=== PATIENT | female | born 1960 | race Caucasian/White ===

== ENCOUNTER 2024-10-25 11:20 | Emergency (ER) | payer OTHER, SELFPAY ==
[2024-10-25 11:25] VITALS: BP 168/110
--- NOTE | 2024-10-25 13:18 | ED.GENMED ---
History of Present Illness
General
Chief Complaint: DVT/Possible Blood Clot
Time Seen by Provider: 10/25/24 12:25
History of Present Illness
History of Present Illness:
63-year-old female without significant past medical history presenting for 'pressure 'in her left upper extremity. Notes symptoms have been ongoing for several days. She talked her primary care doctor who ordered an ultrasound. However, and
trying to schedule the ultrasound was not able to get until December. Denies numbness or tingling to the extremity. Denies any recent injury. Denies associated chest pain, however does report report some pressure in her neck, however that has been
ongoing for months. Denies any history of blood clots. Denies chest pain or difficulty breathing. Symptoms are most prominent at the medial bicipital region. Denies additional acute medical complaints
Past History
Past History
ED Past Medical History: Other (Depression ) and Other (Lymphedema)
ED Past Surgical History:
Social History
Tobacco: Non-smoker
Alcohol: None
Drug: None
Personal:
Living: with family
Employment: Not employed
Phy Exam
Physical Exam
Physical Exam:
General: Well-appearing, no clinical signs of dehydration, nontoxic and in no acute distress
HEENT: protecting airway
Neck: appears supple
CV: Normal heart rate
Resp: No accessory muscle use, no increased work of breathing
Abd: No distention
Extremities: No deformities, no swelling. Range of motion intact to left upper extremity. Distal sensation and pulses intact. No palpable tenderness to the arm. No erythema or warmth. No significant swelling
Neuro: alert, no focal neurologic deficit
: deferred
Rectal: deferred
Psych: Normal affect
Skin: Intact
Course
Orders/Labs/Results
Orders:
Orders
10/25/24 11:29
Electrocardiogram (*1) Urgent
Reason for Study: Other
Other Reason for Exam: left arm pain
10/25/24 11:30
EKG- Treatment ONCE
10/25/24 12:49
US Periph Venous UPPER Ext LT Urgent
Comment:
Reason For Exam: pain/pressure biceps
10/25/24 14:05
Complete Blood Count/With Diff Urgent
Comprehensive Metabolic Panel Urgent
Troponin I Urgent
Abnormal Lab Results
10/25/24
14:05
MCH 31.7 H pg
(27.0-31.0)
MPV 10.5 H fL
(7.4-10.4)
Carbon Dioxide 32 H mmol/L
(22-30)
10/25/24 14:05
10/25/24 14:05
Vital Signs
Initial and Last Documented VS:
Initial Vital Signs
Temp Pulse Resp BP Pulse Ox
99.1 F 95 16 168/110 99
10/25/24 11:25 10/25/24 11:25 10/25/24 11:25 10/25/24 11:25 10/25/24 11:25
Last Documented Vital Signs
Temp Pulse Resp BP Pulse Ox
99.1 F 75 18 138/74 98
10/25/24 11:25 10/25/24 15:00 10/25/24 15:00 10/25/24 15:00 10/25/24 15:00
MDM/Problems Addressed
MDM/Problems Addressed:
63-year-old female presenting for 'pressure 'to left upper extremity. Vitals significant for hypertension.
On exam, patient is well-appearing, no acute distress or discomfort. Overall benign examination of the left upper extremity. No significant swelling or deformity. No palpable tenderness. Notes that the pressure is most prominent at the bicipital
region. Possible tendinitis. Patient for ultrasound. Will obtain for rule out DVT, however relatively low suspicion without any swelling or warmth. EKG obtained, incomplete right bundle branch block, without significant change from prior. Will
screen further with laboratory analysis.
15:10 -ultrasound without any acute abnormality. Labs unremarkable, undetectable troponin. On reassessment patient remains stable. Unclear etiology of patient's symptoms, however feel stable for discharge with continued outpatient follow-up.
Advised ibuprofen as needed for pain. Return precautions discussed and patient verbalized understanding.
*EKG
Interpreted by ED Provider?: Yes
EKG Intrepretation Date: 10/25/24
EKG Intrepretation Time: 13:22
Interpretation: normal
Comparison EKG: no changes (01/14/21)
Heart Rate: 85
Rate: normal
Rhythm: sinus
[place]: normal axis
Interval: normal interval
QRS Pattern: normal QRS
Ischemia: non-specific ST changes
*Critical Care Note
Total Time (30-74mins, 75-104mins- exclusive of procedures): Not Applicable
ED Attending Note
-
Portions of this chart may have been created with voice recognition software.� Occasional wrong word or��sound alike� substitutions may have occurred due to the inherent limitations of voice recognition software.
Discharge Plan
Departure
Prescriptions:
No Action
fluoxetine 20 MG capsule
20 mg PO DAILY
aripiprazole [Abilify] 5 MG tablet
5 mg PO DAILY
Referrals:
Keyonna Florez MD [Family Provider] -
Interventions
Interventions:
*Risk Screen - Suicide Last Done: 10/25/24 11:25
*General Assessment Last Done: 10/25/24 11:25
*Neglect/Abuse Screening Last Done: 10/25/24 11:25
*ED COVID-19 Vaccine History Last Done: 10/25/24 11:25
ED- Cardiac Assessment Last Done: 10/25/24 12:20
ED- Pulmonary Assessment Last Done: 10/25/24 12:20
ED-Peripheral Vascular Assessment Last Done: 10/25/24 12:20
ED-Skin Assessment Last Done: 10/25/24 12:20
Discharge Date and Time
Print Language: TANZANIAN
[2024-10-25 14:15] LABS: % Basophils 0.8 % (0-2); % Eosinophils 1.7 % (0-6); % Immature Granulocytes 0.2 % (0-0.5); % Lymphocytes 31.6 % (20.5-51.1); % Monocytes 6.2 % (1.7-9.3); % Neutrophils 59.5 % (42.2-75.2); Absolute Eosinophils 0.1 10^3/uL (0-0.7); Absolute Lymphocytes 1.7 10^3/uL (1.2-3.4); Absolute Monocytes 0.3 10^3/uL (0.1-0.6); Absolute Neutrophils 3.2 10^3/uL (1.4-6.5); Hematocrit 40.3 % (37.0-47.0); Hemoglobin 13.7 g/dL (12.0-16.0); Mean Corpuscular Hgb 31.7 pg (27.0-31.0); Mean Corpuscular Volume 93.3 fL (81.0-99.0); Mean Platelet Volume 10.5 fL (7.4-10.4); Nucleated Red Blood Cells % 0 %; Platelet Count 153 10^3/uL (130-400); Red Blood Cell Count 4.32 10^6/uL (4.20-5.40); Red Cell Dist. Width 12.7 % (11.5-14.5); White Blood Cell Count 5.3 10^3/uL (4.8-10.8)
[2024-10-25 14:27] LABS: ALT (SGPT) 31 U/L (0-35); AST (SGOT) 35 U/L (14-36); Albumin 4.1 g/dl (3.5-5.0); Alkaline Phosphatase 123 U/L (38-126); Blood Urea Nitrogen 14 mg/dl (7-17); Calcium 9.4 mg/dl (8.4-10.2); Carbon Dioxide 32 mmol/L (22-30); Chloride 101 mmol/L (98-107); Glucose 97 mg/dl (70-99); Potassium 3.9 mmol/L (3.5-5.1); Sodium 137 mmol/L (135-145); Total Bilirubin 0.3 mg/dl (0.2-1.3); Total Protein 6.7 g/dl (6.3-8.2); eGFR > 60.00
[2024-10-25 14:38] LABS: Troponin I < 0.012 ng/ml
[2024-10-25 15:00] VITALS: BP 138/74
== END 2024-10-25 15:40 | disposition home or self-care (01) ==
LOC: EMR 11:20
PROVIDERS: EMERGENCY PHYSICIAN Student in an Organized Health Care Education/Training Program; FAMILY PHYSICIAN Internal Medicine
DX: M79.602 Pain in left arm (principal); I10 Essential (primary) hypertension
CPT/HCPCS: 99285; 80053; 84484; 85025; 93005; 93971